=== PATIENT | male | born 1980 ===

== ENCOUNTER 2018-08-06 10:43 | Day surgery (SDC) | payer SELFPAY ==
[2018-08-05 09:29] VITALS: BMI 29.1
[2018-08-06 11:20] VITALS: O2SAT 99
[2018-08-06 13:20] VITALS: BP 114/67; PULSE 74; RESP 16; TEMP 97.6
== END 2018-08-06 13:14 | disposition home or self-care (01) ==
LOC: C.SDS 10:43
PROVIDERS: ATTEND Surgery
DX: D48.7 Neoplasm of uncertain behavior of other specified sites (principal)

== ENCOUNTER 2018-08-10 10:06 | Day surgery (SDC) | payer SELFPAY ==
[2018-08-05 09:28] VITALS: BMI 29.1
[2018-08-10] MEDS ORDERED: ceFAZolin IV 1 gm in Dextrose 2 GM/100 ML BAG IVPB ONE (12:08)
[2018-08-10] MEDS ORDERED: Lidocaine Hydrochloride 0 ML INJ ONE (12:08)
[2018-08-10] MEDS ORDERED: Bupivacaine 0.25% 20 ML INJ IJ ONE (12:08)
[2018-08-10] MEDS ORDERED: Bacitracin Ointment 30 GM TUBE ONE (13:01)
[2018-08-10] MEDS ORDERED: HYDROmorphone 0.5 mg/0.5 ml ISec IVP PRN (13:17)
[2018-08-10] MEDS ORDERED: Oxycodone/Acetaminophen 5/325 mg Tab PO PRN (13:25)
[2018-08-10] MEDS ORDERED: Propofol 10 mg/ml Inj (20 ML) ONE (13:51)
[2018-08-10] MEDS ORDERED: Midazolam 2 MG/2 ML VIAL ONE (13:51)
[2018-08-10 14:45] VITALS: RESP 18; O2SAT 99
[2018-08-10 15:35] VITALS: BP 116/61; PULSE 92; TEMP 97.8
--- NOTE | 2018-08-11 00:51 | OP ---
PROCEDURE DATE: 08/10/2018 PREOPERATIVE DIAGNOSIS: Infected cyst of the back and right scapular area. POSTOPERATIVE DIAGNOSIS: Infected cyst of the back and right scapular area. PROCEDURE PERFORMED: Wide and deep excision of infected cyst of right back and scapular area with debridement plus irrigation and loose primary closure. SURGEON: Jonh Lewis MD TYPE OF ANESTHESIA: General. ESTIMATED BLOOD LOSS: Less than 30 mL. POSTOPERATIVE CONDITION: Stable. INDICATIONS FOR SURGERY: This is a 38-year-old male with an infected cyst of his back, presented one week ago but had cocaine in his system, and the procedure was canceled until today. He re-presents for elective removal of the infected cyst. GROSS FINDINGS: There was a 6 x 6 cm cyst in the inferior scapular area. It contained a mixture of pus and sebum. There were no other abnormal findings. DESCRIPTION OF PROCEDURE: The patient was taken to the operating room. General anesthesia was administered. He was placed in the prone position, and the back area was prepped and draped. A longitudinal elliptical incision was made surrounding the small opening in the skin, which had been draining and the cystic cavity was entered and cystic material was drained. The wound was aggressively debrided with both sharp and blunt dissection. Bleeding was controlled using the Bovie. The wound was pulse irrigated. Nice clean wound was left and closed with interrupted subcuticular 2-0 Monocryl sutures including the underlying tissue to close the space very loosely. The wound was dressed with bacitracin and a dry sterile dressing. The patient tolerated the procedure well and was returned to the recovery room in stable condition. Jonh Lewis MD
== END 2018-08-10 15:35 | disposition home or self-care (01) ==
LOC: C.SDS 10:06
PROVIDERS: ATTEND Surgery
DX: L72.0 Epidermal cyst (principal); L98.429 Non-pressure chronic ulcer of back with unspecified severity
CPT/HCPCS: 11042; 87070; 88304; 88307; J0690; J2250; J2704; J3010